=== PATIENT | male | born 1955 ===

== ENCOUNTER 2024-05-09 05:30 | Day surgery (SDC) | payer OTHER ==
[2024-05-05 13:18] VITALS: BP 142/87
[~2024-05-09] VITALS: Ht 175.3 cm; Wt 107.0 kg
[~2024-05-09 05:30] MED LIST: ACID CONTROLLER20 MG PO; AMLODIPINE-OLM1 EAC2 PO; ATORVASTATIN CA10 MG PO; COZAAR50 MG PO; ESCITALOPRA5 MG/5 ML PO; FOLIC ACID0.8 M1; JANUVIA25 MG PO; LUNESTA3 MG PO; METAMUCIL0.4 GM; OLANZAPINE2.5 MG PO; PANTOPRAZOLE SO40 MG PO; SYSTANE 0.3-0.1 EACH OP; SYSTANE NIGHTT3.5 GM OP; [UNRECOGNIZED DRUG - OTHER]
[2024-05-09] MEDS ORDERED: HEMOSTATIC MATRIX 1 KIT KIT TOP ONE (08:30)
[2024-05-09] MEDS ORDERED: POVIDONE-IODINE 118 ML BOTT TP ONE (08:30)
[2024-05-09] MEDS ORDERED: METRONIDAZOLE/SODIUM CHLORIDE 200 ML IV ONE (08:30)
[2024-05-09] MEDS ORDERED: DIBUCAINE 30 GM TUBE RC ONE (08:30)
[2024-05-09] MEDS ORDERED: CEFTRIAXONE SODIUM 2,000 MG in 0.9 % SODIUM CHLORIDE 50 ML IV ONE (08:30)
[2024-05-09] MEDS ORDERED: BUPIVACAINE LIPOSOME/PF 266 MG/20 ML VIAL IJ ONE (08:30)
[2024-05-09] MEDS ORDERED: BUPIVACAINE HCL 30 ML VIAL IJ ONE (08:30)
[2024-05-09] MEDS ORDERED: NEURONTIN300 MG PO (10:28)
[2024-05-09] MEDS ORDERED: COLACE100 MG PO (10:28)
[2024-05-09] MEDS ORDERED: ACETAMINOPHEN500 M2 PO (10:28)
[2024-05-09] MEDS ORDERED: TRAM1TAB98 PO (11:23)
[2024-05-09] MEDS ORDERED: MORPHINE SULFATE 4 MG/ML VIAL IV ONE ×2 (12:25→13:25)
== END 2024-05-09 13:55 | disposition home or self-care (01) ==
LOC: CIR.AMB 05:30 → EDBD 11:45 → CIR.AMB 13:55
PROVIDERS: ATTEND Surgery
DX: K64.1 Second degree hemorrhoids (principal); K64.4 Residual hemorrhoidal skin tags